=== PATIENT | female | born 1960 | race African-American/Black ===

== ENCOUNTER 2019-11-19 11:05 | Emergency (ER) | payer SELFPAY ==
[~2019-11-19] VITALS: Ht 162.6 cm; Wt 100.0 kg
[2019-11-19] MEDS ORDERED: IBUPROFEN 600MG TABLET PO ONE (12:15)
[2019-11-19 12:29] VITALS: BP 128/64
== END 2019-11-19 12:30 | disposition home or self-care (01) ==
LOC: ER 11:22
DX: M25.561 Pain in right knee (principal); E11.9 Type 2 diabetes mellitus without complications; E78.00 Pure hypercholesterolemia, unspecified; M13.861 Other specified arthritis, right knee; Z98.890 Other specified postprocedural states
CPT/HCPCS: 73562; 99283

== ENCOUNTER 2023-11-24 12:40 | Emergency (ER) | payer MEDICAID ==
[~2023-11-24] VITALS: Ht 162.6 cm; Wt 100.7 kg
[2023-11-24 13:06] VITALS: O2SAT 98
[2023-11-24 14:47] VITALS: BP 148/78; PULSE 69; RESP 16; TEMP 98.4
== END 2023-11-24 14:48 | disposition home or self-care (01) ==
LOC: ER 12:40
DX: S93.401A Sprain of unspecified ligament of right ankle, initial encounter (principal); S63.501A Unspecified sprain of right wrist, initial encounter; W18.30XA Fall on same level, unspecified, initial encounter; Y93.01 Activity, walking, marching and hiking; Y92.89 Other specified places as the place of occurrence of the external cause; Y99.8 Other external cause status
CPT/HCPCS: 73110; 73610; 99284